=== PATIENT | female | born 1950 | race Caucasian/White ===

== ENCOUNTER 2017-10-03 21:54 | Emergency (ER) | payer MEDICARE, BC ==
[2017-10-03 22:14] VITALS: BP 134/79; PULSE 61; RESP 16; TEMP 96.6; O2SAT 95
[2017-10-03] MEDS ORDERED: LIDOCAINE HCL 1% MPF SOL ONE (22:38)
[2017-10-03] MEDS ORDERED: LIDOCAINE HCL 1% MDV SOL SC ONE (23:02)
[2017-10-03] MEDS ORDERED: BACITRACIN 500 U/GM OIN TOP ONE ×2 (23:09→23:10)
[2017-10-03] MEDS ORDERED: TDAP VACCINE 0.5 ML SUS IM ONE ×2 (23:52→23:53)
== END 2017-10-03 23:57 | disposition home or self-care (01) | DRG 125 ==
LOC: EDBD → MERGE 21:54 → ED 21:54
DX: S01.112A Laceration without foreign body of left eyelid and periocular area, initial encounter (principal); R40.2142 Coma scale, eyes open, spontaneous, at arrival to emergency department; W01.0XXA Fall on same level from slipping, tripping and stumbling without subsequent striking against object, initial encounter; R40.2362 Coma scale, best motor response, obeys commands, at arrival to emergency department; R40.2242 Coma scale, best verbal response, confused conversation, at arrival to emergency department
CPT/HCPCS: 70450; 90715; 99284; A9270-GY; J2001